=== PATIENT | male | born 1995 | race African-American/Black ===

== ENCOUNTER 2019-12-12 16:54 | Emergency (ER) | payer SELFPAY ==
[~2019-12-12] VITALS: Ht 172.7 cm; Wt 72.6 kg
[2019-12-12 16:56] VITALS: BP 122/73
--- NOTE | 2019-12-12 17:02 | NUR ---
WAIT AT LOBBY.
--- NOTE | 2019-12-12 17:30 | NUR ---
PT AMBULATED TO ER BED 01
--- NOTE | 2019-12-12 17:35 | NUR ---
24/M C/O LEFT EAR PAIN X 3 DAYS AFTER "WATER GOT IN MY EAR WHILE SHOWERING". STATES "I GET WATER IN MY EAR AT TIMES BUT USUALLY IT COMES OUT, THIS TIME THE WATER DIDN'T COME OUT". DENIES TINNITUS, DIZZINES, N/V, FEVER. APPEARS NAD, SCROLLING THROUGH CELLPHONE AT THIS TIME. MED HX: DENIES
[2019-12-12 18:03] VITALS: BP 123/76
--- NOTE | 2019-12-12 18:05 | NUR ---
Patient discharged with v/s stable. Written and verbal after care instructions given and explained. Patient alert, oriented and verbalized understanding of instructions. Ambulatory with steady gait. All questions addressed prior to discharge. ID band removed. Patient advised to follow up with PMD. Rx of tramadol, ciprodex, motrin given. Patient educated on indication of medication including possible reaction and side effects. Opportunity to ask questions provided and answered.
== END 2019-12-12 18:05 | disposition home or self-care (01) ==
LOC: MED 16:54
DX: H60.92 Unspecified otitis externa, left ear (principal)
CPT/HCPCS: 99283